=== PATIENT | male | born 1975 | race Caucasian/White ===

== ENCOUNTER 2022-10-02 19:19 | Emergency (ER) | payer BC ==
[2022-10-02] MEDS ORDERED: Sodium Chloride 0.9% 2.5 ML Syringe FLUSH PRN (19:27)
[2022-10-02] MEDS ORDERED: Sodium Chloride 0.9% 10 ML Syringe FLUSH PRN (19:27)
[2022-10-02] MEDS ORDERED: Ketorolac 30 MG/ML SDV IM ONE (19:54)
[2022-10-02] MEDS ORDERED: Ondansetron 4 MG Tab.DIS PO ONE (19:54)
[2022-10-02] MEDS ORDERED: Acetaminophen/oxyCODONE 325-5 MG Tab PO ONE (19:54)
[2022-10-02 20:26] LABS: APPEARANCE,URINE CLEAR; BILIRUBIN,URINE NEGATIVE (NEGATIVE); COLOR,URINE YELLOW; GLUCOSE,URINE NEGATIVE (NEGATIVE); KETONES,URINE NEGATIVE (NEGATIVE); LEUKOCYTE ESTERASE,URINE NEGATIVE (NEGATIVE); NITRITE,URINE NEGATIVE (NEGATIVE); OCCULT BLOOD,URINE NEGATIVE (NEGATIVE); PH,URINE 5.5 (5.0-8.0); PROTEIN,URINE NEGATIVE (NEGATIVE); UROBILINOGEN,URINE 0.2 EU/dL (<2.0)
[2022-10-02 20:46] LABS: BASOPHILS PERCENT AUTO 0.2 % (0.0-1.5); EOSINOPHILS ABSOLUTE AUTO 0.1 K/uL (0.0-0.7); EOSINOPHILS PERCENT AUTO 0.6 % (0.0-7.0); HEMATOCRIT 42.5 % (38.0-50.0); HEMOGLOBIN 14.5 g/dL (13.0-17.0); LYMPHOCYTES ABSOLUTE AUTO 1.7 K/uL (0.6-2.4); MEAN CORPUSCULAR HEMOGLOBIN 31.2 pg (27.0-32.0); MEAN CORPUSCULAR HGB CONC 34.1 g/dL (31.0-37.0); MEAN CORPUSCULAR VOLUME 91.4 fL (80.0-98.0); MONOCYTES ABSOLUTE AUTO 0.8 K/uL (0.0-0.8); MONOCYTES PERCENT AUTO 9.2 % (0.0-15.0); NEUTROPHILS ABSOLUTE AUTO 5.8 K/uL (1.4-5.7); NRBC ABSOLUTE 0 K/uL; PLATELET COUNT,PLT 247 K/uL (150-400); RED BLOOD CELL COUNT 4.65 M/uL (4.50-5.90); WHITE BLOOD CELL COUNT,WBC 8.27 K/uL (4.0-11.0)
[2022-10-02 21:19] LABS: A/G RATIO 1.1 (0.9-1.6); ALBUMIN 3.8 g/dL (3.4-5.0); BILIRUBIN TOTAL 1.2 mg/dL (0.2-1.0); CARBON DIOXIDE,CO2 25.2 mmol/L (21.0-32.0); EST CRCL DRUG DOSING (CG) 87.22 mL/min; PROTEIN TOTAL,TP 7.2 g/dL (6.4-8.2)
== END 2022-10-02 22:14 | disposition home or self-care (01) ==
LOC: MW.ED 19:19
DX: N23 Unspecified renal colic (principal)
CPT/HCPCS: 36415; 74176; 80053; 81003; 85025; 96372; 99284; A9270; J1885

== ENCOUNTER 2023-07-10 05:07 | Emergency (ER) | payer BC ==
[2023-07-10] MEDS: Sodium Chloride 0.9% 2.5 ML Syringe FLUSH PRN (05:26)
[2023-07-10] MEDS: Ketorolac 30 MG/ML SDV IVPUSH ONE (05:26)
[2023-07-10] MEDS: Ondansetron 4 MG/2 ML SDV IVPUSH ONE (05:26)
[2023-07-10] MEDS: Sodium Chloride 0.9% 1,000 ML IV ONE (05:26)
[2023-07-10] MEDS: Sodium Chloride 0.9% 10 ML Syringe FLUSH PRN (05:27)
[2023-07-10 06:15] LABS: CORONAVIRUS COVID-19 NAA NEGATIVE (NEGATIVE); INFLUENZA A NAA NEGATIVE (NEGATIVE); INFLUENZA B NAA NEGATIVE (NEGATIVE)
== END 2023-07-10 06:29 | disposition home or self-care (01) ==
LOC: MW.ED 05:07
DX: J00 Acute nasopharyngitis [common cold] (principal)
CPT/HCPCS: 0240U; 71046; 96374; 96375; 99283; J1885; J2405; J3490; J7030; 99284